=== PATIENT | male | born 1940 | race Caucasian/White ===

== ENCOUNTER 2019-11-02 12:47 | Outpatient (CLI) | payer MEDICARE ==
[~2019-11-02 12:47] MED LIST: GLUC1CAP48 PO; IBUP200C26 PO; MAGN300C PO; METO25TA35 PO; METO25TA91 PO; POTA10TA11 PO; RIVA10TA2 PO; RIVA20TA PO; TAMS-11 PO; Vit B PO
== END 2019-11-02 23:59 | disposition home or self-care (01) ==
LOC: CFH 12:47
PROVIDERS: ATTEND Internal Medicine Cardiovascular Disease
DX: I48.91 Unspecified atrial fibrillation (principal)
CPT/HCPCS: 93306

== ENCOUNTER → 2020-06-27 | Outpatient (CLI) | payer MEDICARE ==
[2020-06-27 10:57] LABS: BASOPHILS # (AUTO) 0.04 x10^3/uL (0-0.1); BASOPHILS % (AUTO) 1 % (0-1); EOSINOPHILS # (AUTO) 0.12 x10^3/uL (0-0.4); EOSINOPHILS % (AUTO) 2 % (1-7); HCT (SEDRATE) 41.3 % (39.2-51.8); LYMPHOCYTES # (AUTO) 0.96 x10^3/uL (1-3.4); LYMPHOCYTES % (AUTO) 17 % (22-44); MD NO; MEAN CORPUSCULAR HGB CONC 33.7 g/dL (33.2-36.2); MEAN CORPUSCULAR VOLUME 94.9 fL (81-97); MONOCYTES # (AUTO) 0.52 x10^3/uL (0.2-0.8); MONOCYTES % (AUTO) 9 % (2-9); NEUTROPHILS % (AUTO) 71 % (42-75); PLATELET COUNT 235 x10^3/uL (130-400); RED BLOOD COUNT 4.34 x10^6/uL (4.38-5.82); RED CELL DISTRIBUTION WIDTH 13.1 % (9.4-14.8)
[2020-06-27 11:05] LABS: ALANINE AMINOTRANSFERASE 21 U/L (12-78); ALBUMIN 3.8 g/dL (3.4-5.0); ANION GAP 5 mmol/L (5-15); C-REACTIVE PROTEIN, QUANT 0.35 mg/dL (0.02-0.49); CALCIUM 9.3 mg/dL (8.5-10.1); CHLORIDE 106 mmol/L (98-107); CREATININE 0.72 mg/dL (0.7-1.3)
[2020-06-27 11:07] LABS: ALKALINE PHOSPHATASE 160 U/L (45-117); BILIRUBIN,TOTAL 0.6 mg/dL (0.2-1.0); MICROSCOPIC NOT IND
== END | disposition home or self-care (01) ==
LOC: STAR 08:43
PROVIDERS: ATTEND Orthopaedic Surgery
DX: Z01.818 Encounter for other preprocedural examination (principal); M16.7 Other unilateral secondary osteoarthritis of hip
CPT/HCPCS: 36415; 80053; 81003; 85025; 85651; 86140; 87081; 87086; 93005

== ENCOUNTER → 2020-06-29 | Outpatient (CLI) | payer MEDICARE | END | disposition home or self-care (01) | LOC: STAR 08:33 | PROVIDERS: ATTEND Anesthesiology | DX: Z01.812 Encounter for preprocedural laboratory examination (principal); Z20.828 Contact with and (suspected) exposure to other viral communicable diseases | CPT/HCPCS: 36415; 87635 ==

== ENCOUNTER 2020-07-08 22:42 | Emergency (ER) | payer MEDICARE ==
[~2020-07-08] VITALS: Ht 175.3 cm; Wt 86.2 kg
[~2020-07-08 22:42] MED LIST changes: +ASPI81TA59 PO; +CELE100C PO; +OXYC-307 PO
--- NOTE | 2020-07-08 23:15 | NUR ---
assumed care of pt. pt here for bleeding from dressing P/O day 5. dressing has been removed by MD per pt request. replacement dressing requested. awaiting dressing delivery
[2020-07-08 23:43] VITALS: BP 110/61
== END 2020-07-08 23:48 | disposition home or self-care (01) ==
LOC: ED 23:30
DX: M96.841 Postprocedural hematoma of a musculoskeletal structure following other procedure (principal); Z87.891 Personal history of nicotine dependence; Z96.649 Presence of unspecified artificial hip joint
CPT/HCPCS: 99281